=== PATIENT | female | born 1945 | race Caucasian/White ===

== ENCOUNTER 2017-04-05 06:22 | Emergency (ER) | payer OTHER ==
[~2017-04-05] VITALS: Ht 165.1 cm; Wt 55.0 kg
[~2017-04-05 06:22] MED LIST: ASPI81 PO; CRANCAP11 PO; LEVO.075 PO; METO25CR PO; OMEG600C2 PO; TAB-TAB PO; VITA100018 PO; VITA50TA10 PO
[2017-04-05 06:24] VITALS: BP 142/63; PULSE 71; RESP 16; TEMP 98.5; O2SAT 99
[2017-04-05] MEDS ORDERED: LEVO.075 PO (06:40)
[2017-04-05] MEDS ORDERED: ASPI81CH CHEW (06:40)
[2017-04-05 06:41] VITALS: BP 158/69; PULSE 66; RESP 22; TEMP 98.1; O2SAT 99
[2017-04-05] MEDS ORDERED: METO25TA3 PO (06:44)
--- NOTE | 2017-04-05 07:19 | PD ---
HPI Chief Complaint: Syncope/Near-Syncope Time Seen by Provider: 07:16 Travel History International Travel<30 days: No Contact w/Intl Traveler<30days: No Traveled to known affect area: No History of Present Illness HPI 71-year-old female with history of TIA, hypertension, hypothyroidism, presents to the ER today because she started having dizziness last night and woke up this morning fairly dizzy. She states she feels a little off balance but denies any room spinning. She denies any chest pains, headaches, shortness of breath, vomiting, fevers, or any other symptoms. She reports that she has had similar symptoms a few weeks ago as well and has discussed it with her primary care physician. Modifying Factors: None Associated Signs & Symptoms: Dizziness Risk Factors: None PFSH Past Medical History Cardiovascular Problems: Yes (LEAKY VALVE) Cerebrovascular Accident: Yes (POSS TIA) Diabetes: No Diminished Hearing: No Gastrointestinal Disorders: Yes GERD: Yes Genitourinary: Yes (CURRENT UTI) Hypertension: Yes Immunizations Current: Yes Thyroid Disease: Yes Tetanus Vaccination: < 5 Years Influenza Vaccination: Yes Menopausal: Yes : 6 Para: 4 Miscarriage: 2 Social History Alcohol Use: Yes (OCC) Tobacco Use: No Substance Use: No Allergies-Medications (Allergen,Severity, Reaction): Coded Allergies: No Known Allergies (Verified , 04/05/17) Reported Meds & Prescriptions Reported Meds & Active Scripts Active Reported Metoprolol Tartrate 25 Mg Tab 12.5 Mg PO DAILY Aspirin 81 Mg Chew 81 Mg CHEW DAILY Synthroid (Levothyroxine Sodium) 75 Mcg Tab 75 Mcg PO DAILY Review of Systems Except as stated in HPI: all other systems reviewed are Neg Physical Exam Narrative GENERAL: Well-developed pleasant elderly white female patient currently in mild distress. Awake and oriented 3. SKIN: Focused skin assessment warm/dry. HEAD: Atraumatic. Normocephalic. EYES: Pupils equal and round. No scleral icterus. No injection or drainage. ENT: No nasal bleeding or discharge. Mucous membranes pink and moist. NECK: Trachea midline. No JVD. CARDIOVASCULAR: Regular rate and rhythm. No murmur appreciated. RESPIRATORY: No accessory muscle use. Clear to auscultation. Breath sounds equal bilaterally. GASTROINTESTINAL: Abdomen soft, non-tender, nondistended. Hepatic and splenic margins not palpable. MUSCULOSKELETAL: No obvious deformities. No clubbing. No cyanosis. No edema. NEUROLOGICAL: Awake and alert. No obvious cranial nerve deficits. Motor grossly within normal limits. Normal speech. No pronator drift. PSYCHIATRIC: Appropriate mood and affect; insight and judgment normal. Data Data Last Documented VS Vital Signs Date Time Temp Pulse Resp B/P Pulse Ox O2 Delivery O2 Flow Rate FiO2 04/05/17 07:24 18 98 Room Air 04/05/17 06:41 98.1 66 158/69 Orders Electrocardiogram (04/05/17 07:16) Complete Blood Count With Diff (04/05/17 07:16) Comprehensive Metabolic Panel (04/05/17 07:16) Magnesium (Mg) (04/05/17 07:16) Ckmb (Isoenzyme) Profile (04/05/17 07:16) Troponin I (04/05/17 07:16) Act Partial Throm Time (Ptt) (04/05/17 07:16) Prothrombin Time / Inr (Pt) (04/05/17 07:16) Urinalysis - C+S If Indicated (04/05/17 07:16) Chest, Single Ap (04/05/17 07:16) Ct Brain W/O Iv Contrast(Rout) (04/05/17 07:16) Ecg Monitoring (04/05/17 07:16) Iv Access Insert/Monitor (04/05/17 07:16) Oximetry (04/05/17 07:16) Sodium Chloride 0.9% Flush (Ns Flush) (04/05/17 07:30) Sodium Chlorid 0.9% 500 Ml Inj (Ns 500 M (04/05/17 07:30) Potassium Chloride (Kcl) (04/05/17 08:00) Labs Laboratory Tests Test 04/05/17 04/05/17 07:24 08:00 White Blood Count 6.2 TH/MM3 Red Blood Count 4.81 MIL/MM3 Hemoglobin 14.1 GM/DL Hematocrit 43.6 % Mean Corpuscular Volume 90.6 FL Mean Corpuscular Hemoglobin 29.3 PG Mean Corpuscular Hemoglobin 32.3 % Concent Red Cell Distribution Width 13.3 % Platelet Count 186 TH/MM3 Mean Platelet Volume 8.4 FL Neutrophils (%) (Auto) 50.9 % Lymphocytes (%) (Auto) 34.3 % Monocytes (%) (Auto) 8.6 % Eosinophils (%) (Auto) 4.7 % Basophils (%) (Auto) 1.5 % Neutrophils # (Auto) 3.2 TH/MM3 Lymphocytes # (Auto) 2.1 TH/MM3 Monocytes # (Auto) 0.5 TH/MM3 Eosinophils # (Auto) 0.3 TH/MM3 Basophils # (Auto) 0.1 TH/MM3 CBC Comment DIFF FINAL Differential Comment Prothrombin Time 10.6 SEC Prothromb Time International 1.0 RATIO Ratio Activated Partial 25.2 SEC Thromboplast Time Sodium Level 141 MEQ/L Potassium Level 3.3 MEQ/L Chloride Level 104 MEQ/L Carbon Dioxide Level 27.8 MEQ/L Anion Gap 9 MEQ/L Blood Urea Nitrogen 15 MG/DL Creatinine 0.99 MG/DL Estimat Glomerular Filtration 55 ML/MIN Rate Random Glucose 95 MG/DL Calcium Level 9.2 MG/DL Magnesium Level 2.3 MG/DL Total Bilirubin 0.6 MG/DL Aspartate Amino Transf 27 U/L (AST/SGOT) Alanine Aminotransferase 17 U/L (ALT/SGPT) Alkaline Phosphatase 90 U/L Total Creatine Kinase 44 U/L Troponin I 0.02 NG/ML Total Protein 7.8 GM/DL Albumin 4.1 GM/DL Urine Color LIGHT-YELLOW Urine Turbidity CLEAR Urine pH 6.5 Urine Specific [place]ak[place] 1.004 Urine Protein NEG mg/dL Urine Glucose (UA) NEG mg/dL Urine Ketones NEG mg/dL Urine Occult Blood NEG Urine Nitrite NEG Urine Bilirubin NEG Urine Urobilinogen LESS THAN 2.0 MG/DL Urine Leukocyte Esterase LARGE Urine RBC 2 /hpf Urine WBC 3 /hpf Urine Squamous Epithelial 1 /hpf Cells Urine Bacteria RARE /hpf Urine Mucus FEW /lpf Microscopic Urinalysis Comment CULT NOT INDICATED MDM Medical Decision Making Medical Screen Exam Complete: Yes Emergency Medical Condition: Yes Medical Record Reviewed: Yes Interpretation(s) EKG shows sinus bradycardia rate of 57 bpm with no signs of acute ST elevations or changes. Laboratory Tests Test 04/05/17 04/05/17 07:24 08:00 Monocytes (%) (Auto) 8.6 % (0.0-8.0) Eosinophils (%) (Auto) 4.7 % (0.0-4.0) Potassium Level 3.3 MEQ/L (3.5-5.1) Estimat Glomerular Filtration 55 ML/MIN (>89) Rate Urine Leukocyte Esterase LARGE (NEG) Urine Bacteria RARE /hpf (NONE) Urine Mucus FEW /lpf (OCC) Last [address] 04/05/17715 Signed Impressions: Service Date/Time: Wednesday, April 05, 2017 07:50 - CONCLUSION: 1. No acute intracranial abnormality. Paulie Briggs MD Chest X-Ray 04/05/17715 Signed Impressions: Service Date/Time: Wednesday, April 05, 2017 07:37 - CONCLUSION: 1. COPD changes. Stable compared to previous dated 11/13/14. Jean Hare MD Differential Diagnosis Dizzinessdehydration versus metabolic issues versus dysrhythmias versus CVA/ TIA versus vertigo Narrative Course Patient is conversant, ambulatory in the ER without issues. I do not see any focal neurological deficits. EKG does show mild bradycardia although patient states she has had this in the past. She is on metoprolol and at this point I will have her not take the metoprolol for now. It is possible that this could be contributing. Her potassium is slightly low and potassium was given in the ER. Electrolyte panel was otherwise unremarkable and cardiac enzymes are negative. CT of the brain was unremarkable for any signs of acute processes. At this point, I do not see any acute processes and my plan would be to have her follow-up to primary care physician. Return for any worsening in symptoms as needed. The plan has been discussed with her and she states understanding. Diagnosis Primary Impression: Dizziness Disposition: 01 DISCHARGE HOME Condition: Stable Skyla Gandara MD Apr 05, 2017 07:19
[2017-04-05 07:24] VITALS: RESP 18; O2SAT 98
[2017-04-05] MEDS ORDERED: SODIUM CHLORIDE 0.9% FLUSH 10 ML FLUSH IVF PRN (07:30)
[2017-04-05] MEDS ORDERED: SODIUM CHLORID 0.9% 500 ML INJ 500 ML IV ONE (07:30)
[2017-04-05 07:36] LABS: AUTOMATED NEUTROPHIL # 3.2 TH/MM3 (1.8-7.7); BASOPHIL # 0.1 TH/MM3 (0-0.2); BASOPHIL % 1.5 % (0.0-2.0); EOSINOPHIL # 0.3 TH/MM3 (0-0.4); EOSINOPHIL % 4.7 % (0.0-4.0); HEMATOCRIT 43.6 % (35.0-46.0); HEMO FLAGS DIFF FINAL; LYMPH % 34.3 % (9.0-44.0); LYMPHOCYTE # 2.1 TH/MM3 (1.0-4.8); MEAN CELL VOLUME 90.6 FL (80.0-100.0); MEAN CORPUSCULAR HEMOGLOBIN 29.3 PG (27.0-34.0); MEAN CORPUSCULAR HGB CONC 32.3 % (32.0-36.0); MONO % 8.6 % (0.0-8.0); NEUT % 50.9 % (16.0-70.0); PLATELET COUNT 186 TH/MM3 (150-450); RED BLOOD COUNT 4.81 MIL/MM3 (4.00-5.30); RED CELL DISTRIBUTION WIDTH 13.3 % (11.6-17.2); WHITE BLOOD COUNT 6.2 TH/MM3 (4.0-11.0)
[2017-04-05 07:49] LABS: APTT (PATIENT) 25.2 SEC (24.3-30.1); PROTHROMBIN TIME - PATIENT 10.6 SEC (9.8-11.6)
[2017-04-05 07:54] LABS: ALT (GPT) 17 U/L (10-53); ANION GAP 9 MEQ/L (5-15); AST (GOT) 27 U/L (15-37); BICARBONATE 27.8 MEQ/L (21.0-32.0); BLOOD UREA NITROGEN 15 MG/DL (7-18); CHLORIDE 104 MEQ/L (98-107); GLOMERULAR FILTRATION RATE 55 ML/MIN (>89); MAGNESIUM 2.3 MG/DL (1.5-2.5); POTASSIUM 3.3 MEQ/L (3.5-5.1); SODIUM (NA) 141 MEQ/L (136-145)
--- NOTE | 2017-04-05 07:57 | RADRPT ---
EXAM DATE/TIME: 04/05/2017 07:37 [facility] COMPARISON: CHEST PA & LAT, November 13, 2014, 9:15. INDICATIONS : Dizziness. MEDICAL HISTORY : None. SURGICAL HISTORY : None. ENCOUNTER: Initial ACUITY: 1 day PAIN SCORE: 0/10 LOCATION: Bilateral chest FINDINGS: The heart is mildly enlarged. There diffuse chronic interstitial changes and COPD. This is similar to the prior dated 11/13/14. The visualized bony structures are grossly intact. CONCLUSION: 1. COPD changes. Stable compared to previous dated 11/13/14. Jean Hare MD on April 05, 2017 at 7:54 Board Certified Radiologist. This report was verified electronically.
[2017-04-05 07:58] LABS: ALKALINE PHOSPHATASE 90 U/L (45-117); TOTAL BILIRUBIN ADULT 0.6 MG/DL (0.2-1.0)
[2017-04-05] MEDS ORDERED: POTASSIUM CHLORIDE 20 MEQ CONTROLLED RELEASE TAB PO ONE (08:00)
[2017-04-05 08:07] LABS: CREATINE KINASE 44 U/L (26-192)
[2017-04-05 08:17] LABS: BACTERIA, URINE RARE /hpf; BLOOD, URINE NEG (NEG); COMMENT (UR) CULT NOT INDICATED; CULTURE IF INDICATED CULT NOT INDICATED; GLUCOSE,URINE NEG (NEG); KETONE, URINE NEG (NEG); MUCUS URINE FEW /lpf (OCC); NITRITE,URINE NEG (NEG); PH, URINE 6.5 (5.0-8.5); SQUAMOUS EPITHELIAL CELL URINE 1 /hpf (0-5); URINE COLOR LIGHT-YELLOW (YELLW/STRAW)
--- NOTE | 2017-04-05 08:20 | RADRPT ---
EXAM DATE/TIME: 04/05/2017 07:50 [facility] COMPARISON: CT BRAIN W/O CONTRAST, January 25, 2016, 17:06. INDICATIONS : Feeling lightheaded. RADIATION DOSE: 30.33 CTDIvol (mGy) MEDICAL HISTORY : Cardiovascular disease. Hypertension. Cerebrovascular disease. SURGICAL HISTORY : None. ENCOUNTER: Initial ACUITY: 1 day PAIN SCALE: 0/10 LOCATION: cranial TECHNIQUE: Multiple contiguous axial images were obtained of the head. Using automated exposure control and adj ustment of the mA and/or kV according to patient size, radiation dose was kept as low as reasonably a chievable to obtain optimal diagnostic quality images. DICOM format image data is available electro nically for review and comparison. FINDINGS: CEREBRUM: Mild cerebral atrophy. The ventricles are normal for degree of atrophy. No evidence of midline shift , mass lesion, hemorrhage or acute infarction. No extra-axial fluid collections are seen. POSTERIOR FOSSA: The cerebellum and brainstem are intact. The 4th ventricle is midline. The cerebellopontine angle i s unremarkable. EXTRACRANIAL: The visualized portion of the orbits is intact. SKULL: The calvaria is intact. No evidence of skull fracture. CONCLUSION: 1. No acute intracranial abnormality. Paulie Briggs MD on April 05, 2017 at 8:16 Board Certified Radiologist. This report was verified electronically.
--- NOTE | 2017-04-06 10:46 | EKG ---
Date Performed: 04/05/2017 Time Performed: 06:38:10 PTAGE: 71 years EKG: SINUS BRADYCARDIA WITH SINUS ARRHYTHMIA MODERATE ST DEPRESSION ABNORMAL ECG PREVIOUS TRACING : 11/13/2014 14.52 DOCTOR: Alvaro Juarez Interpretating Date/Time 04/06/2017 10:44:32
== END 2017-04-05 09:07 | disposition home or self-care (01) ==
LOC: NEPE 06:22
DX: R42 Dizziness and giddiness (principal); R00.1 Bradycardia, unspecified; R94.31 Abnormal electrocardiogram [ECG] [EKG]; I10 Essential (primary) hypertension; E03.9 Hypothyroidism, unspecified; Z86.79 Personal history of other diseases of the circulatory system; Z87.19 Personal history of other diseases of the digestive system
CPT/HCPCS: 70450; 71010; 80053; 81001; 82550; 83735; 84484; 85025; 85610; 85730; 93005; 99285; J7040